=== PATIENT | male | born 1965 | race Hispanic/Latino ===

== ENCOUNTER → 2016-12-14 | Outpatient (CLI) | payer SELFPAY ==
[2016-12-14 12:05] LABS: CREATININE 0.7 mg/dL (0.70-1.50)
--- NOTE | 2016-12-14 16:46 | DI ---
MRI LUMBAR SPINE W/O CN,12/14/2016 11:46 AM: Clinical History: Low back pain and possible radiculopathy. Previous Exam: None at this facility. Findings: Multiplanar MR images are obtained through the lumbar spine without contrast, and demonstrate anatomi c alignment without fractures. Vertebral body height is preserved. The spinal cord descends normally with a normal conus at the L1 level. Paraspinal musculature is unremarkable. The major vascular flow voids are unremarkable. Individual intervertebral disc spaces: L1/2: No significant stenosis. L2/3: No significant stenosis. L3/4: No significant stenosis. L4/5: There is disc desiccation and a broad-based disc bulge with annular fissuring contributing to m ild central canal stenosis without significant neuroforaminal narrowing. L5/S1: There is disc desiccation, annular fissuring and a broad-based disc bulge contributing to mild left neural foraminal narrowing. Impression: L4/5: There is disc desiccation and a broad-based disc bulge with annular fissuring contributing to m ild central canal stenosis without significant neuroforaminal narrowing. L5/S1: There is disc desiccation, annular fissuring and a broad-based disc bulge contributing to mild left neural foraminal narrowing.
== END ==
LOC: MRI 11:35
PROVIDERS: ATTEND Family Medicine
DX: M54.5 Low back pain (principal); M47.816 Spondylosis without myelopathy or radiculopathy, lumbar region; M47.27 Other spondylosis with radiculopathy, lumbosacral region
CPT/HCPCS: 36415; 72148; 82565; 84520